=== PATIENT | female | born 1940 | race Caucasian/White ===

== ENCOUNTER 2017-06-02 12:00 | Day surgery (SDC) | payer MEDICARE, BC ==
[2017-06-02] VITALS (9 sets, daily range): BP systolic 133–178; BP diastolic 83–105; PULSE 22–61; TEMP 98.6
[~2017-06-02] VITALS: Ht 152.4 cm; Wt 66.7 kg
[~2017-06-02 12:00] MED LIST: ASPIRIN 32325 MG/TA1 PO; CITRACAL + D 251 TAB PO; DITROPAN XL 5MG5 M1 PO; FERROUS SU325 MG/TAB PO; NORCO 325 MG-7.1 TAB PO; NORMODYNE200 MG PO; ROXICODONE 55 MG/TAB PO; THERAGRAN1 TA1 PO; XANAX 0.5MG0.5 MG PO
[2017-06-02] MEDS ORDERED: TOPROL XL 50MG50 MG PO (13:03)
[2017-06-02] MEDS ORDERED: OMEGA-3 1000 MG1 CAP PO (13:05)
== END 2017-06-02 15:50 | disposition home or self-care (01) ==
LOC: SDCO 12:00
DX: D13.5 Benign neoplasm of extrahepatic bile ducts (principal); K83.8 Other specified diseases of biliary tract; K31.9 Disease of stomach and duodenum, unspecified; I10 Essential (primary) hypertension; Z90.49 Acquired absence of other specified parts of digestive tract; Z86.010 Personal history of colon polyps
CPT/HCPCS: OP; C1769; J2704; J7030; Q9967

== ENCOUNTER 2019-10-27 19:47 | Emergency (ER) | payer MEDICARE, BC ==
[~2019-10-27] VITALS: Ht 154.9 cm; Wt 65.9 kg
[~2019-10-27 19:47] MED LIST changes: +OMEGA-3 1000 MG1 CAP PO; +TOPROL XL 50MG50 MG PO
[2019-10-27 20:01] VITALS: BP 171/89; TEMP 97.8
[2019-10-27 21:01] LABS: COLLECTION METHOD CLEAN CATCH
[2019-10-27 21:14] LABS: MUCOUS Present /lpf; PH 6 (5-8); SQUAMOUS EPITHELIAL 0-2 /hpf; URINE APPEARANCE Clear; URINE BACTERIA None Seen /hpf; URINE BILIRUBIN Negative (NEGATIVE); URINE BLOOD Negative (NEGATIVE); URINE COLOR Straw; URINE GLUCOSE Negative (NEGATIVE); URINE KETONE Negative (NEGATIVE); URINE LEUKOCYTE ESTERASE Negative (NEGATIVE); URINE NITRATE Negative (NEGATIVE); URINE PROTEIN(semi-quant) Negative (NEGATIVE); URINE RBC None Seen /hpf; URINE UROBILINOGEN Negative (NEGATIVE)
[2019-10-27 21:34] VITALS: PULSE 72
== END 2019-10-27 21:35 | disposition home or self-care (01) ==
LOC: COL.ER 19:47
PROVIDERS: Emergency Medicine
DX: K62.3 Rectal prolapse (principal)

== ENCOUNTER 2022-04-14 19:31 | Inpatient (IN) | payer MEDICARE, BC ==
[~2022-04-14] VITALS: Ht 157.5 cm; Wt 66.3 kg
[2022-04-14 19:43] LABS: BASO % 0.2 % (0.0-2.0); EOS % 0.2 % (0.0-4.0); GRAN # 10.7 K/mm3 (1.4-6.5); GRAN % 80.8 % (42.2-75.2); HEMATOCRIT 38.8 % (37.0-47.0); HEMOGLOBIN 13.3 g/dl (12.5-16.0); LYMPH # 1.3 K/mm3 (1.2-3.4); LYMPH % 9.6 % (20.0-51.0); MEAN CELL VOLUME 92 fl (80.0-100.0); MEAN CORPUSCULAR HEMOGLOBIN 32 pg (27-31); MEAN CORPUSCULAR HGB CONC 34 g/dl (33.0-37.0); MEAN PLATELET VOLUME 9.5 fl (7.4-10.4); MONO # 1.1 K/mm3 (0.1-0.6); MONO % 8.5 % (1.7-9.3); PLATELET COUNT 275 K/mm3 (130-400); RED BLOOD COUNT 4.22 M/mm3 (4.10-5.30); REDCELL DISTRIBUTION WIDTH-CV 13.2 % (11.5-14.5)
[2022-04-14 19:50] LABS: INR 1.1 (0.8-3.0); PROTHROMBIN TIME 12.2 SECONDS (9.7-12.8)
[2022-04-14 19:52] LABS: PARTIAL THROMBOPLASTIN TIME 27.7 SECONDS (26.0-37.0)
[2022-04-14 20:00] LABS: ALANINE AMINOTRANSFERASE 26 U/L (0-55); ALBUMIN 3.5 gm/dL (3.4-4.8); ALKALINE PHOSPHATASE 85 U/L (40-150); ANION GAP 11 mmol/L (7-16); AST,SGOT 35 U/L (5-34); BILIRUBIN,TOTAL 0.7 mg/dL (0.2-1.2); BLOOD UREA NITROGEN 6 mg/dL (10-20); CALCIUM 8.3 mg/dL (8.4-10.2); CARBON DIOXIDE 19 mmol/L (23-31); CREATININE, serum 0.72 mg/dL (0.57-1.11); GLUCOSE 167 mg/dL (70-99); POTASSIUM 4.1 mmol/L (3.5-4.5); TOTAL PROTEIN 5.9 gm/dL (6.2-8.1)
[2022-04-14] MEDS ORDERED: NORMODYNE200 MG (20:07)
[2022-04-14 20:08] LABS: SODIUM 117 mmol/L (136-145)
[2022-04-14] MEDS ORDERED: VASOTEC20 MG (20:08)
[2022-04-14] MEDS ORDERED: MINIPRESS 1M1 MG/CAP (20:08)
[2022-04-14 20:09] LABS: CHLORIDE 87 mmol/L (98-107); TROPONIN-I < 0.010 ng/mL (0.00-0.033)
[2022-04-14] MEDS ORDERED: BACTRIM DS 8001 TAB PO (20:51)
[2022-04-14 22:28] LABS: MAGNESIUM 1.6 mg/dL (1.6-2.6)
[2022-04-15] VITALS (12 sets, daily range): BP systolic 108–156; BP diastolic 58–97; PULSE 55–72; TEMP 97.5–98.3
[2022-04-15 00:19] LABS: MUCOUS Present (NOT PRESENT); SQUAMOUS EPITHELIAL None Seen /hpf (0-10); URINE BACTERIA Rare /hpf (NONE SEEN)
[2022-04-15 00:20] LABS: URINE APPEARANCE Hazy (CLEAR/HAZY); URINE COLOR Yellow (YELLOW)
[2022-04-15 00:21] LABS: PH 6 (5-8); URINE BLOOD 2+ (NEGATIVE); URINE GLUCOSE Negative (NEGATIVE); URINE KETONE 1+ (NEGATIVE); URINE NITRATE Negative (NEGATIVE); URINE PROTEIN(semi-quant) Negative (NEGATIVE)
[2022-04-15 01:48] LABS: CREATININE, serum 0.68 mg/dL (0.57-1.11); POTASSIUM 3.9 mmol/L (3.5-4.5)
--- NOTE | 2022-04-15 04:35 | NUR ---
PT BROUGHT PER BED FROM ED WITH DX FRACTURED RT HIP. PT IS ALERT AND ORIENTED X4. HAS IVF TO LEFT AC INFUSING WITHOUT REDNESS OR SWELLING. PLACED IN TEDS AND SCDS. WILL BE NPO FOR SURGERY AT NOON. BED ALARM ON.
--- NOTE | 2022-04-15 04:56 | NUR ---
PT COMPLAINS OF RT LEG PAIN 05/15. MEDICATED WITH MORPHINE 2MG IVP AND SCHEDULED ES TYLENOL AND OXYCODONE 5MG PO. ADMISSION QUESTIONS COMPLETED. HOME MEDS SENT TO PHARMACY.
[2022-04-15 06:07] LABS: CALCIUM 7.9 mg/dL (8.4-10.2); CREATININE, serum 0.64 mg/dL (0.57-1.11); POTASSIUM 3.8 mmol/L (3.5-4.5)
--- NOTE | 2022-04-15 06:17 | NUR ---
SPOKE WITH DR LAURA REGARDING NA+=118 CL=89, NO NEW ORDERS.
--- NOTE | 2022-04-15 08:00 | NUR ---
Patient laying in bed A&Ox4. VSS. IV CDI, fluids infusing. Denies pain and discomfort. Ice on RT hip. SCDs bilateral legs. Seizure precautions in place. Patient NPO for possible procedure. Call light within reach. Bed alarm on
[2022-04-15 09:39] LABS: CALCIUM 7.9 mg/dL (8.4-10.2); CREATININE, serum 0.7 mg/dL (0.57-1.11); POTASSIUM 3.7 mmol/L (3.5-4.5)
--- NOTE | 2022-04-15 10:14 | NUR ---
HARRISON met with the patient to discuss discharge plan. The patient lives alone in a house in [place]. She reports independence with ADLs before her fall and has a cane and walker. The patient's PCP is Dr. Omi Magana and she receives her medications from the [facility]. The patient does not have a DPOA-HC, but she was interested in obtaining a form. HARRISON provided. She states that she is and has two children: Clemencia Lezama (ph#[phone]) and Neli Figueroa (ph#[phone]). Clemencia lives in [place], [place] and Neli lives in [place], [place]. SW informed her how her daughters would be her legal next of kin. The patient verbalized understanding. She states that she is okay with this and would be interested in completing the DPOA-HC at a later time. She states she feels a little confused today. The patient has a hip fracture and is to tentatively have surgery later today or tomorrow. HARRISON discussed post-acute rehab. The patient is agreeable to rehab. HARRISON provided her with Medicare.gov's list of SNFs in the [place] area and informed her of IPR. The patient chose 1) [facility]. She states that she does not have a second preference and was okay with SW sending referrals to the [facility]. HARRISON contacted the patient's daughter, Clemencia, to review the above. Clemencia states that she has heard great things about [facility] and would be interested in SW sending a referral to them. She states that she will probably come back to [place], when the patient is getting closer to discharge from the SNF. HARRISON contacted and faxed referrals to [facility], [facility], [facility], and [facility]. Awaiting screens. *Discharge plan: SNF, referrals out*
--- NOTE | 2022-04-15 12:30 | NUR ---
Patient taken to the OR
[2022-04-15 12:42] LABS: CALCIUM 8.1 mg/dL (8.4-10.2); CREATININE, serum 0.67 mg/dL (0.57-1.11)
--- NOTE | 2022-04-15 15:45 | NUR ---
Patient to room 345 from the OR. Patient A&Ox3. VSS. IV CDI, fluids by gravity. Denies pain and discomfort. RT hip incision CDI. ICE applied. Denies pain and discomfort. Post Op VS monitored. Nurse oriented the patient to location, room and call light. Call light within reach
[2022-04-15 17:19] LABS: CREATININE, serum 0.69 mg/dL (0.57-1.11); POTASSIUM 4.1 mmol/L (3.5-4.5)
--- NOTE | 2022-04-15 18:58 | NUR ---
Patient sitting up in bed, A&Ox3. VSS. IV CDI, fluids infusing. RT hip incision site small amount of serosangineous drainage lower incision, intact. Ice applied. Archer intact. SCDs bilateral legs. Denies pain and discomfort. Call light within reach. Seizure precautions in place. Bed alarm on
--- NOTE | 2022-04-15 19:30 | NUR ---
RECEIVED CHANGE OF SHIFT REPORT FROM DAY SHIFT RN.
[2022-04-15 21:36] LABS: CALCIUM 7.6 mg/dL (8.4-10.2); CREATININE, serum 0.69 mg/dL (0.57-1.11)
--- NOTE | 2022-04-15 22:20 | NUR ---
ATTEMPTED TO CALL LAB RESULTS TO HOSP PROVIDER ONCALL, PROVIDER UNAVAILABLE TO TAKE RESULTS AND STATES THEY WILL CALL NURSING WHEN THEY CAN.
[2022-04-16 02:27] LABS: CALCIUM 7.6 mg/dL (8.4-10.2); CREATININE, serum 0.73 mg/dL (0.57-1.11); POTASSIUM 3.8 mmol/L (3.5-4.5)
[2022-04-16 03:20] VITALS: BP 95/42; PULSE 62; TEMP 97.9
[2022-04-16 06:22] LABS: INR 1.2 (0.8-3.0); PROTHROMBIN TIME 14.2 SECONDS (9.7-12.8)
[2022-04-16 06:26] LABS: CALCIUM 7.8 mg/dL (8.4-10.2); CREATININE, serum 0.7 mg/dL (0.57-1.11); POTASSIUM 3.8 mmol/L (3.5-4.5)
[2022-04-16 06:33] LABS: HEMATOCRIT 24.8 % (37.0-47.0)
[2022-04-16 06:34] LABS: HEMOGLOBIN 8.5 g/dl (12.5-16.0)
--- NOTE | 2022-04-16 06:59 | NUR ---
CHANGE OF SHIFT REPORT GIVEN TO DAY SHIFT RNEULOGIO.
[2022-04-16 07:16] VITALS: BP 100/38; PULSE 63; TEMP 97.9
--- NOTE | 2022-04-16 08:00 | NUR ---
Patient sitting up in the recliner, Joni with PT assisted the patient into [facility] recliner. A&Ox3. VSS. IV CDI, fluids infusing. Archer intact. Ice on RT hip. TYSON gracia lf leg. Denies pain and discomfort. Call light within reach. Chair alarm on
[2022-04-16 10:42] LABS: CALCIUM 7.8 mg/dL (8.4-10.2); CREATININE, serum 0.82 mg/dL (0.57-1.11)
[2022-04-16 12:16] VITALS: BP 100/41; PULSE 66; TEMP 97.6
[2022-04-16 15:12] VITALS: BP 98/55; PULSE 68; TEMP 98.1
--- NOTE | 2022-04-16 15:25 | NUR ---
[employer] faxed clinical updates to [facility], [facility], and [facility]. SW was contacted by Cony at [facility] who advised they can accept patient if she is agreeable to be seen by their medical assistant, Dr. Jordan. Cony advised they would also like to have DPOA-HC if patient is willing. SW followed up with patient about SNF preferences. Patient would prefer either [facility] or [facility], but is worried about out of pocket cost as she is non weight bearing and her daughter was told she would owe money out of pocket. SW explained non WB status and how that relates to Medicare's guidelines for SNF. Patient verbalized understanding "but does not like it". Patient states she can afford private pay but doesn't want to if she doesn't have to. SW attempted to contact Taylor at [facility] and left a message. SW also attempted contact with patient's daughter, Clemencia and left a message.
[2022-04-16 15:31] LABS: CALCIUM 7.8 mg/dL (8.4-10.2); CREATININE, serum 0.75 mg/dL (0.57-1.11); POTASSIUM 4.2 mmol/L (3.5-4.5)
--- NOTE | 2022-04-16 16:03 | NUR ---
Chalker Soles spoke with patient's daughter, Clemencia who advised she spoke with [facility] about private pay cost. HARRISON advised that [facility] would be able to accept Tuesday as well. Clemencia advised she would discuss preferences with patient this evening and follow up. Clemencia advised she also discussed private pay with patient and encouraged patient that it's okay to spend money on her care. Discharge Plan: [facility]
--- NOTE | 2022-04-16 17:05 | NUR ---
Archer removed, pericare provided before and after care. 10 ml removed from the balloon. Tip intact. Patient tolerated well. Call light within reach
--- NOTE | 2022-04-16 17:52 | NUR ---
Patient had an uneventful day. Worked with PT and ambulated to the recliner. Has been sitting in the recliner for meals. RT incision site dressing saturated, nurse called RHINA Aden for Dr. Garcia for orders. Patient A&Ox4. VSS. IV CDI, fluids infusing. Archer removed, has not voided yet. Ice on RT hip most of the shift. Pain medication given when requested. Call light within reach. Seizure precautions in place. Chair alarm on
--- NOTE | 2022-04-16 23:12 | NUR ---
Patient assessed around 2019. Assisted into bed with one assist. Did well. Denied having pain and discomfort. Dressing to right hip changed per orders. Tolerated well. IV fluids continue per orders. BP low, help BP medications. Patient in bed with call light within reach. Bed alarm on. Voices no questions, needs, or concerns at this time.
[2022-04-17] VITALS: BP 130/54; PULSE 68; TEMP 98.1
[2022-04-17 05:21] VITALS: BP 117/60; PULSE 66; TEMP 98.7
--- NOTE | 2022-04-17 05:35 | NUR ---
Around midnight, patient tried to void on commode but was unable to. [place] as if bladder was full. Bladder scanned patient with a result of greater than 550. Updated TRA Mota. Indwelling hayes catheter replaced, with 625 mls of urine output. UA obtained. Voices no further questions, needs, or concerns at this time. In bed with call light within reach. High fall risk precautions in place.
[2022-04-17 05:52] LABS: HEMATOCRIT 24.1 % (37.0-47.0); HEMOGLOBIN 8.1 g/dl (12.5-16.0)
[2022-04-17 05:53] LABS: PROTHROMBIN TIME 11.3 SECONDS (9.7-12.8)
[2022-04-17 06:17] LABS: COLLECTION METHOD CATHETER
[2022-04-17 06:26] LABS: URINE APPEARANCE Clear (CLEAR/HAZY); URINE BLOOD Negative (NEGATIVE); URINE COLOR Yellow (YELLOW); URINE GLUCOSE Negative (NEGATIVE); URINE KETONE Negative (NEGATIVE); URINE NITRATE Negative (NEGATIVE); URINE PROTEIN(semi-quant) Negative (NEGATIVE); URINE UROBILINOGEN 0.2 E.U/dL (0.2-1.0)
[2022-04-17 06:31] LABS: SQUAMOUS EPITHELIAL None Seen /hpf (0-10); URINE BACTERIA None Seen /hpf (NONE SEEN)
[2022-04-17 07:11] VITALS: BP 121/53; PULSE 73; TEMP 98
[2022-04-17 12:03] LABS: COLLECTION METHOD CATHETER
[2022-04-17 12:33] VITALS: BP 111/55; PULSE 70; TEMP 97.8
[2022-04-17 16:26] VITALS: BP 133/62; PULSE 77; TEMP 98.6
[2022-04-17 16:42] LABS: CALCIUM 8.3 mg/dL (8.4-10.2); CREATININE, serum 0.69 mg/dL (0.57-1.11); POTASSIUM 4.3 mmol/L (3.5-4.5)
--- NOTE | 2022-04-17 19:18 | NUR ---
SHIFT REPORT FROM JOSEPH HIGH. PATIENT IN BED, ALERT AND ORIENTED, SITTING UP EATING. ASSISTED X1 ASSIST TO BEDSIDE COMMODE TO HAVE BM. DENIES ADDITIONAL NEEDS.
[2022-04-17 19:38] VITALS: BP 130/52; PULSE 82; TEMP 98.4
[2022-04-18] VITALS (7 sets, daily range): BP systolic 114–159; BP diastolic 54–77; PULSE 73–82; TEMP 97.7–98.5
--- NOTE | 2022-04-18 04:02 | NUR ---
PATIENT IN BED. ALERT AND ORIENTED. HS MEDS PER EMAR. IV TO R FA INFILTRATED, RESTARTED TO L FA. DENIES PAIN CONTROL NEEDS.
[2022-04-18 05:55] LABS: BASO % 0.5 % (0.0-2.0); EOS # 0.2 K/mm3 (0.0-0.7); EOS % 2.9 % (0.0-4.0); GRAN # 5.3 K/mm3 (1.4-6.5); GRAN % 63.8 % (42.2-75.2); LYMPH # 1.6 K/mm3 (1.2-3.4); LYMPH % 19.1 % (20.0-51.0); MEAN CELL VOLUME 97 fl (80.0-100.0); MEAN CORPUSCULAR HGB CONC 33 g/dl (33.0-37.0); MEAN PLATELET VOLUME 9.2 fl (7.4-10.4); MONO # 1.1 K/mm3 (0.1-0.6); MONO % 12.7 % (1.7-9.3); PLATELET COUNT 251 K/mm3 (130-400); RED BLOOD COUNT 2.57 M/mm3 (4.10-5.30); REDCELL DISTRIBUTION WIDTH-CV 14.8 % (11.5-14.5)
[2022-04-18 06:01] LABS: HEMATOCRIT 24.8 % (37.0-47.0); HEMOGLOBIN 8.1 g/dl (12.5-16.0); MEAN CORPUSCULAR HEMOGLOBIN 32 pg (27-31)
[2022-04-18 06:16] LABS: PROTHROMBIN TIME 11.6 SECONDS (9.7-12.8)
[2022-04-18 06:21] LABS: CALCIUM 8.1 mg/dL (8.4-10.2); CREATININE, serum 0.6 mg/dL (0.57-1.11); POTASSIUM 4.3 mmol/L (3.5-4.5)
--- NOTE | 2022-04-18 10:39 | NUR ---
Dr. Miranda inquires about patient placement status. This Glassware Selector reviewed patient chart noting patient has referrals to [facility] on Tuesday, and [facility]. Glassware Selector contacted patient daughter Clemencia to discuss; daughter is in support of patient waiting until tomorrow (Tuesday) to be placed at her preferred choice in [place] as she believes this will maintain patient "good spirits" and increase her changes of continued recovery. She is familiar with others who are currently placed there, and would like to stay close to her social supports. Glassware Selector updates Dr. Miranda, who is in support of plan for patient to discharge to [facility] tomorrow, at patient and family request. Glassware Selector updates Clemencia, patient daughter expresses relief and gratitude. Patient is notified. *Dishcharge Tuesday04/19/22 to [facility]*
--- NOTE | 2022-04-19 02:24 | NUR ---
PATIENT IN BED ON ROOM ENTRY. ALERT AND ORIENTED. DENIES PAIN CONTROL NEEDS. HS MEDS PER EMAR. JOHNSON TO DD WITH CLEAR YELLOW URINE. R HIP DRESSINGS CDI.
[2022-04-19 03:52] VITALS: BP 157/68; PULSE 76; TEMP 97.4
[2022-04-19 06:17] LABS: BASO # 0.1 K/mm3 (0.0-0.2); BASO % 0.6 % (0.0-2.0); EOS # 0.4 K/mm3 (0.0-0.7); EOS % 4.5 % (0.0-4.0); GRAN # 4.9 K/mm3 (1.4-6.5); GRAN % 59.3 % (42.2-75.2); LYMPH # 1.8 K/mm3 (1.2-3.4); LYMPH % 21.9 % (20.0-51.0); MEAN CELL VOLUME 94 fl (80.0-100.0); MEAN CORPUSCULAR HGB CONC 33 g/dl (33.0-37.0); MONO # 1.1 K/mm3 (0.1-0.6); MONO % 12.7 % (1.7-9.3); PLATELET COUNT 310 K/mm3 (130-400); RED BLOOD COUNT 2.53 M/mm3 (4.10-5.30); REDCELL DISTRIBUTION WIDTH-CV 14.9 % (11.5-14.5)
[2022-04-19 06:23] LABS: PROTHROMBIN TIME 11.6 SECONDS (9.7-12.8)
[2022-04-19 06:32] LABS: CALCIUM 8.2 mg/dL (8.4-10.2); CREATININE, serum 0.66 mg/dL (0.57-1.11); HEMATOCRIT 23.8 % (37.0-47.0); HEMOGLOBIN 7.9 g/dl (12.5-16.0); MEAN CORPUSCULAR HEMOGLOBIN 31 pg (27-31); POTASSIUM 4.5 mmol/L (3.5-4.5)
[2022-04-19 08:00] VITALS: BP 155/78; PULSE 74; TEMP 98.3
--- NOTE | 2022-04-19 08:00 | NUR ---
PATIENT IS A&O. VSS ON TELE. NO C/O PAIN AT BEDSIDE. NOTED DRAINAGE TO RLE DRESSING AND WILL CHANGE BEFORE DISCHARGE WITH [employer]. NWB TO RLE. JOHNSON TO DD WITH MOD AMOUNTS OF CLEAR YELLOW URINE NOTED. NO C/O N/V. LEFT FORARM IV TO INT. BREAKFAST TRAY AT BEDSIDE. AM MEDS GIVEN. HEAD TO TOE ASSESSMENT COMPLETE. PLAN IS TO DISCHARGE TO [facility] TODAY.
[2022-04-19] MEDS ORDERED: DULCOLAX S10 MG/SUPP RC (09:22)
[2022-04-19] MEDS ORDERED: OSCAL 500 TAB500 MG PO (09:22)
[2022-04-19] MEDS ORDERED: TYLENOL 500MG500 MG PO (09:22)
[2022-04-19] MEDS ORDERED: ASPIRIN 81M81 MG/TA2 PO (09:22)
[2022-04-19] MEDS ORDERED: VITAMIN C500 MG PO (09:23)
[2022-04-19] MEDS ORDERED: DUO-KAPS1 CAP PO (09:23)
[2022-04-19] MEDS ORDERED: SENNA-S 50 MG-81 TAB PO (09:23)
[2022-04-19] MEDS ORDERED: GOOD SENSE400 MG/5 M PO (09:23)
[2022-04-19] MEDS ORDERED: ROXICODONE 55 MG/TAB PO (09:36)
--- NOTE | 2022-04-19 10:15 | NUR ---
Initial visit; Patient thanked Furrier Apprentice for looking in on her and offering God's blessings and to keep her in Furrier Apprentice's prayers.
--- NOTE | 2022-04-19 10:50 | NUR ---
PATIENT DISCHARGING VIA EMS TO [facility]. GAVE EMS DISCHARGE PACKET. CALLED REPORT TO NURSE AT [facility]. DC'D LEFT FORARM IV AND COVERED SITE WITH [employer]ZE [employer] TEGADERM. CHANGED RLE POST OP DRESSING, NOTED SATURATED DRESSING, APPLIED NEW 4X4 [employer]. DC'D SUSAN. ELIZABETH ALCALA'D THIS AM. PATIENT ASSISTED TO GET DRESSED, PACKED AND DISCHARGED.
--- NOTE | 2022-04-19 14:50 | NUR ---
Certified Executive Chef attended clinical rounds with the team and patient is ready for discharge today. HARRISON spoke with Yamini at [facility] who advised they can accept today but do not have transportation. Yamini requested we hold the patient another day and HARRISON advised this was not an option. HARRISON collaborated with Procedures Rn who secured authorization from Hospital DON to arrange EMS transport and bill the hospital. HARRISON contacted [facility] and set transport time for 1030. HARRISON contacted Yamini at [facility] and they are agreeable to this transport time. HARRISON faxed discharge orders and negative covid results. HARRISON met with patient and explained that EMS transport will be set up and billed to the hospital. Patient in agreement to discharge to [facility] via EMS. HARRISON presented IM to patient who verbalized understanding and provided signature. HARRISON placed form in chart and provided copy to patient. HARRISON placed completed EMS forms on chart. HARRISON then contacted patient's daughter, Clemencia and advised that patient would discharge to [facility] at 1030 via EMS to be payed by the hospital. Clemencia is agreeable to this plan. Discharge Plan: [facility] SNF
== END 2022-04-19 10:50 | DRG 481 ==
LOC: COL.ER 19:31 → SURG 04-15 03:34
PROVIDERS: Emergency Medicine; Nurse Practitioner Family; Orthopaedic Surgery; ADMIT Student in an Organized Health Care Education/Training Program
PROC: 0QS604Z Reposition Right Upper Femur with Internal Fixation Device, Open Approach (ICD-10-PCS; principal; 2022-04-15 13:00)
DX: S72.141A Displaced intertrochanteric fracture of right femur, initial encounter for closed fracture (principal); N39.0 Urinary tract infection, site not specified; E87.1 Hypo-osmolality and hyponatremia; E87.2 Acidosis; I10 Essential (primary) hypertension; F41.9 Anxiety disorder, unspecified; M19.90 Unspecified osteoarthritis, unspecified site; D72.829 Elevated white blood cell count, unspecified; E87.8 Other disorders of electrolyte and fluid balance, not elsewhere classified; W18.39XA Other fall on same level, initial encounter; R73.9 Hyperglycemia, unspecified; I35.0 Nonrheumatic aortic (valve) stenosis; E86.1 Hypovolemia; M41.9 Scoliosis, unspecified; Z20.822 Contact with and (suspected) exposure to COVID-19; Z90.89 Acquired absence of other organs; Z88.0 Allergy status to penicillin; Z98.51 Tubal ligation status; Z90.49 Acquired absence of other specified parts of digestive tract; Z88.2 Allergy status to sulfonamides; Z88.8 Allergy status to other drugs, medicaments and biological substances; Y93.89 Activity, other specified; Y92.89 Other specified places as the place of occurrence of the external cause; Z23 Encounter for immunization
CPT/HCPCS: A9284; C1713; J0690; J0696; J1885; J2250; J2270; J2405; J2704; J3010; J7030; J7040; J7121